=== PATIENT | female | born 1985 | race Caucasian/White ===

== ENCOUNTER → 2019-12-07 | Outpatient (CLI) | payer MEDICAID ==
[~2019-12-07] MED LIST: ONDANSETRON HCL4 M3 PO
== END ==
LOC: M.ULTRA 10:27
PROVIDERS: ATTEND Registered Nurse Diabetes Educator
DX: E04.9 Nontoxic goiter, unspecified (principal); E05.90 Thyrotoxicosis, unspecified without thyrotoxic crisis or storm